=== PATIENT | female | born 1990 | race Caucasian/White ===

== ENCOUNTER 2016-06-22 18:29 | Emergency (ER) | payer OTHER ==
[2016-06-22 18:45] VITALS: BP 99/60; PULSE 63; TEMP 98.2; BMI 16.9
[2016-06-22 19:53] LABS: URINE APPEARANCE CLEAR; URINE BILIRUBIN NEGATIVE (NEGATIVE); URINE BLOOD NEGATIVE (NEGATIVE); URINE COLOR STRAW; URINE GLUCOSE (UA) NEGATIVE (NEGATIVE); URINE KETONE NEGATIVE (NEGATIVE); URINE LEUK ESTERASE NEGATIVE (NEGATIVE); URINE NITRITE NEGATIVE (NEGATIVE); URINE PROTEIN NEGATIVE (NEGATIVE); URINE UROBILINOGEN NEGATIVE E.U./dl (0.2-1.0)
[2016-06-22] MEDS ORDERED: SODIUM CHLORIDE 1,000 ML IV ONE (20:04)
--- NOTE | 2016-06-22 20:07 | PDOC ---
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 The patient denies fever, chills, nausea, vomiting, diarrhea or dysuria. Family is with the patient in the ED. 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 LMP: 06/20/2016. Allergies: None reported. Past Surgical History: None reported. Social History: Non smoker. Denies alcohol or drug use. <Evangelina Pretty - Last Filed: 06/22/16 23:18> <Anitha Roman - Last Filed: 06/22/16 23:47> - General Chief Complaint: Pain Stated Complaint: STOMACH PAIN Time Seen by Provider: 06/22/16 19:25 Past History <Evangelina Pretty - Last Filed: 06/22/16 23:18> - Past Medical History Other medical history: denies - Psycho/Social/Smoking Cessation Hx Suicidal Ideation: No Smoking History: Never smoked Have you smoked in the past 12 months: No Information on smoking cessation initiated: No Hx Alcohol Use: No Drug/Substance Use Hx: No <Anitha Roman - Last Filed: 06/22/16 23:47> - Past Medical History Allergies/Adverse Reactions: Allergies Allergy/AdvReac Type Severity Reaction Status Date / Time No Known Allergies Allergy Verified 06/22/16 18:42 Home Medications: Ambulatory Orders NK [No Known Home Medication] 06/22/16 Review of Systems - Review of Systems Able to Perform ROS?: Yes Comments:: 06/22/16 21:28 CONSTITUTIONAL: Absent: fever, no chills, no fatigue EYES: Absent: visual changes ENT: Absent: ear pain, no sore throat CARDIOVASCULAR: Absent: chest pain, no palpitations RESPIRATORY: Absent: cough, no SOB GI: Present: +RLQ abdominal pain Absent: no nausea, no vomiting, no constipation, no diarrhea GENITOURINARY: Absent: dysuria, no frequency, no hematuria MUSCULOSKELETAL: Absent: back pain, no arthralgia, no myalgia SKIN: Absent: rash NEURO: Absent: headache <Evangelina Pretty - Last Filed: 06/22/16 23:18> *Physical Exam - Vital Signs Last Vital Signs Temp Pulse Resp BP Pulse Ox 98.2 F 63 17 99/60 100 06/22/16 18:42 06/22/16 18:42 06/22/16 18:42 06/22/16 18:42 06/22/16 18:42 - Physical Exam Comments: 06/22/16 21:36 GENERAL: Well-appearing, well-nourished. No apparent distress. HEENT: Normocephalic, atraumatic. PERRL, EOM intact. CARDIOVASCULAR: Regular rate and rhythm. Normal S1, S2. PULMONARY: Lungs clear to auscultation bilaterally. No wheezing, rales or rhonchi. ABDOMEN: RLQ tenderness on palpation with rebound. No guarding. Soft, non- distended. EXTREMITIES: Normal ROM in all four extremities. No gross deformities. SKIN: Warm, dry. No rash. NEUROLOGICAL: No focal neurological deficits. Moving all extremities purposefully. <Evangelina Pretty - Last Filed: 06/22/16 23:18> - Vital Signs Last Vital Signs Temp Pulse Resp BP Pulse Ox 98.2 F 63 17 99/60 100 06/22/16 18:42 06/22/16 18:42 06/22/16 18:42 06/22/16 18:42 06/22/16 18:42 <Anitha Roman - Last Filed: 06/22/16 23:47> ED Treatment Course - LABORATORY CBC & Chemistry Diagram: 06/22/16 20:00 06/22/16 20:00 - ADDITIONAL ORDERS Additional order review: Laboratory Results 06/22/16 06/22/16 20:00 19:50 Sodium 139 Potassium 4.0 Chloride 105 Carbon Dioxide 26 Anion Gap 8 BUN 8 Creatinine 0.6 Creat Clearance w eGFR > 60 Random Glucose 93 Calcium 8.7 Total Bilirubin 0.4 AST 15 ALT 27 Alkaline Phosphatase 63 Total Protein 7.1 Albumin 3.4 Lipase 144 Urine Color Straw Urine Appearance Clear Urine pH 7.0 Ur Specific [place] 1.003 Urine Protein Negative Urine Glucose (UA) Negative Urine Ketones Negative Urine Blood Negative Urine Nitrite Negative Urine Bilirubin Negative Urine Urobilinogen Negative Ur Leukocyte Esterase Negative Urine HCG, Qual Negative 06/22/16 20:00 RBC 4.24 MCV 89.4 MCHC 32.3 RDW 14.3 MPV 9.6 Neutrophils % 53.4 Lymphocytes % 32.9 Monocytes % 9.5 Eosinophils % 2.6 Basophils % 1.6 <Evangelina Pretty - Last Filed: 06/22/16 23:18> - LABORATORY CBC & Chemistry Diagram: 06/22/16 20:00 06/22/16 20:00 - ADDITIONAL ORDERS Additional order review: Laboratory Results 06/22/16 19:50 Urine Color Straw Urine Appearance Clear Urine pH 7.0 Ur Specific [place] 1.003 Urine Protein Negative Urine Glucose (UA) Negative Urine Ketones Negative Urine Blood Negative Urine Nitrite Negative Urine Bilirubin Negative Urine Urobilinogen Negative Ur Leukocyte Esterase Negative Urine HCG, Qual Negative <Anitha Roman - Last Filed: 06/22/16 23:47> Medical Decision Making - Medical Decision Making 06/22/16 21:26 EXAM: TRANSVAGINAL US Reviewed By: Dr. Yuri Zamorano IMPRESSION: Normal uterus. Endometrial stripe thickness normal, 2 mm. Right ovary simple cyst 4.3 x 2.4 x 3.7 cm. Remainder of right ovary unremarkable. Normal right ovarian arterial inflow, venous outflow and Doppler waveform. Negative for right ovarian torsion. No pelvic or adnexal free fluid. Left ovary was not visualized. EXAM: ABDOMEN & PELVIS CT WITH CONTR Reviewed By: Dr. Yuri Zamorano IMPRESSION: Normal appendix. 4.3 cm right ovarian cyst. Moderate colonic stool, correlate for constipation. <Evangelina Pretty - Last Filed: 06/22/16 23:18> - Medical Decision Making 06/22/16 20:07 25-year-old female has been experiencing right lower quadrant pain for 2 days. She denies any nausea, vomiting, diarrhea Her last menstrual period started June 20 She denies any past medical history. She denies any past surgical history. She does not take any prescription medications. Her primary medical doctor is at [address] [place] [address]. 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 There was a right ovarian cyst of 4.3 cm and a moderate amount of colonic stool. Impression: right ovarian cyst, constipation Patient referred to her poured wall foreman -Patient told to use Colace and MiraLAX for her constipation <Anitha Roman - Last Filed: 06/22/16 23:47> *DC/Admit/Observation/Transfer - Attestations Scribe Attestion: 06/22/16 20:53 Documentation prepared by Evangelina Pretty, acting as medical assistant dermatology for Anitha Roman MD. <Evangelina Pretty - Last Filed: 06/22/16 23:18> <Anitha Roman - Last Filed: 06/22/16 23:47> Diagnosis at time of Disposition: Right lower quadrant abdominal pain Ovarian cyst Qualifiers: Laterality: right Qualified Code(s): N83.20 - Unspecified ovarian cysts Constipation Qualifiers: Constipation type: unspecified constipation type Qualified Code(s): K59.00 - Constipation, unspecified - Discharge Dispostion Disposition: HOME Condition at time of disposition: Stable - Patient Instructions Printed Discharge Instructions: DI for Constipation, DI for Ovarian Cyst Additional Instructions: please take MIRALAX for your constipation Follow up with your poured wall foreman for further evaluation of your right ovarian cyst Print Language: ERITREAN
[2016-06-22 20:14] LABS: BASOPHIL 1.6 % (0-2.0); EOSINOPHIL 2.6 % (0-4.5); MCH 28.9 pg (25.7-33.7); MCHC 32.3 g/dl (32.0-36.0); MEAN CELL VOLUME 89.4 fl (80-96); MEAN PLT VOLUME 9.6 fl (7.5-11.1); NEUTROPHILS 53.4 % (42.8-82.8); PLATELET COUNT 252 K/MM3 (134-434); RDW 14.3 % (11.6-15.6); WHITE BLOOD COUNT 4.7 K/mm3 (4.0-10.0)
[2016-06-22 20:32] LABS: ALBUMIN 3.4 g/dl (3.4-5.0); ALK PHOS 63 U/L (45-117); ANION GAP 8 (8-16); BILIRUBIN,TOTAL 0.4 mg/dL (0.2-1.0); CALCIUM 8.7 mg/dL (8.5-10.1); CO2 26 mmol/L (21-32); CREATININE 0.6 mg/dL (0.55-1.02); GLUCOSE,RANDOM 93 mg/dL (74-106); SGOT/AST 15 U/L (15-37); SGPT/ALT 27 U/L (12-78); TOT PROT 7.1 g/dl (6.4-8.2)
[2016-06-22 20:59] LABS: PLATELET ESTIMATE ADEQUATE (NORMAL)
[2016-06-23] MEDS ORDERED: OXYCODONE/APAP 5/325MG COMBO TABLET PO ONE (00:10)
[2016-06-23] MEDS ORDERED: IBUPROFEN 400 MG TABLET (FP) PO ONE ×2 (00:10→00:20)
[2016-06-23] MEDS ORDERED: OXYCODONE/APAP 5/325MG COMBO TABLET ONE (00:20)
== END 2016-06-23 00:22 | disposition home or self-care (01) ==
LOC: JER 18:29
PROC: 3E0337Z Introduction of Electrolytic and Water Balance Substance into Peripheral Vein, Percutaneous Approach (ICD-10-PCS; principal; 2016-06-22)
DX: K59.00 Constipation, unspecified (principal); N83.291 Other ovarian cyst, right side
CPT/HCPCS: 36415; 74177-TC; 76830-TC; 80053; 81003; 83690; 84703; 85025; 99282-25

== ENCOUNTER 2022-09-03 06:59 | Emergency (ER) | payer OTHER ==
[2022-09-03 07:09] VITALS: BP 100/64; PULSE 61; RESP 18; TEMP 97.8; BMI 17.2
[2022-09-03] MEDS ORDERED: SODIUM CHLORIDE 1,000 ML IV STA (07:39)
[2022-09-03] MEDS ORDERED: ONDANSETRON 4 MG/2 ML VIAL IVPUSH ONE (07:45)
[2022-09-03] MEDS ORDERED: MAG HYDROX/AL HYDROX/SIMETH 30 ML UNIT-DOSE CUP PO ONE (07:45)
[2022-09-03] MEDS ORDERED: FAMOTIDINE 20 MG/50 ML IVPB 20 MG/50 ML MG IVPB ONE ×2 (07:45→07:55)
[2022-09-03] MEDS ORDERED: ONDANSETRON 4 MG/2 ML VIAL ONE (07:55)
[2022-09-03] MEDS ORDERED: MAG HYDROX/AL HYDROX/SIMETH 30 ML UNIT-DOSE CUP ONE ×2 (07:55→07:59)
[2022-09-03 08:47] LABS: BASO % 0.3 % (0-2.0); EOS % 1.2 % (0-4.5); HEMATOCRIT 34.9 % (32.4-45.2); LYMPH % 5.7 % (8-40); MCH 30.5 pg (25.7-33.7); MCHC 34.4 g/dl (32.0-36.0); MEAN CELL VOLUME 88.7 fl (80-96); MEAN PLT VOLUME 9.5 fl (7.5-11.1); MONO % 5.3 % (3.8-10.2); NEUT % 87.5 % (42.8-82.8); PLATELET COUNT 192 10^3/uL (134-434); RBC 3.93 M/mm3 (3.60-5.2); RDW 13.2 % (11.6-15.6)
[2022-09-03 09:18] LABS: ALBUMIN 3.6 g/dl (3.4-5.0); CALCIUM 8.7 mg/dL (8.5-10.1)
[2022-09-03 09:19] LABS: BLOOD UREA NITROGEN 19.8 mg/dL (7-18)
[2022-09-03 09:22] LABS: CREATININE 0.6 mg/dL (0.55-1.3)
[2022-09-03 09:23] LABS: BILIRUBIN,TOTAL 0.8 mg/dL (0.2-1); TOT PROT 7.2 g/dl (6.4-8.2)
[2022-09-03 11:20] LABS: EPI CELLS 31 /uL (0-25.1); HCG,QUALITATIVE URINE Negative; HYALINE CASTS 0 /uL (0-3.1); URINE APPEARANCE CLEAR; URINE BACTERIA 340 /uL (0-1359); URINE BILIRUBIN NEGATIVE (NEGATIVE); URINE COLOR YELLOW; URINE GLUCOSE (UA) NEGATIVE (NEGATIVE); URINE KETONE NEGATIVE (NEGATIVE); URINE LEUK ESTERASE TRACE (NEGATIVE); URINE NITRITE NEGATIVE (NEGATIVE); URINE PROTEIN NEGATIVE (NEGATIVE); URINE RBC 14 /uL (0-23.9); URINE UROBILINOGEN 0.2 mg/dL (0.2-1.0); URINE WBC 13 /uL (0-25.8)
== END 2022-09-03 10:45 | disposition home or self-care (01) ==
LOC: JER 06:59
PROC: 3E033GC Introduction of Other Therapeutic Substance into Peripheral Vein, Percutaneous Approach (ICD-10-PCS; principal; 2022-09-03)
PROC: 3E033GC Introduction of Other Therapeutic Substance into Peripheral Vein, Percutaneous Approach (ICD-10-PCS; 2022-09-03)
DX: K29.00 Acute gastritis without bleeding (principal)
CPT/HCPCS: 36415; 76705-TC; 80053; 81003; 83690; 84703; 85025; 87077; 87086; 99284-25

== ENCOUNTER 2024-02-21 21:12 | Emergency (ER) | payer OTHER ==
[2024-02-21 21:22] VITALS: BP 110/75; PULSE 82; RESP 18; TEMP 98; BMI 18.8
[2024-02-21] MEDS ORDERED: ACETAMINOPHEN 500 MG TABLET (FP) ONE (21:59)
[2024-02-21] MEDS ORDERED: ONDANSETRON 4 MG/2 ML VIAL ONE (22:00)
[2024-02-21 22:14] LABS: HCG,QUALITATIVE URINE Positive
[2024-02-21] MEDS: ACETAMINOPHEN 325 MG TABLET (FP) PO ONE (22:14)
[2024-02-21] MEDS: ONDANSETRON 4 MG/2 ML VIAL IVPB ONE (22:15)
[2024-02-21 22:30] LABS: HEMATOCRIT 39.8 % (32.4-45.2); HEMOGLOBIN 12.9 G/dL (10.7-15.3); MCH 29.5 pg (25.7-33.7); MCHC 32.5 g/dl (32.0-36.0); MEAN CELL VOLUME 90.7 fl (80-96); PLATELET COUNT 184.1 10^3/uL (134-434); RBC 4.39 10^6/uL (3.60-5.2); RDW 14.8 % (11.6-15.6); WHITE BLOOD COUNT 6.2 10^3/uL (4.0-10.8)
[2024-02-21 22:44] LABS: ALK PHOS 36 U/L (45-117); ANION GAP 10 mmol/L (4-13); BILIRUBIN,TOTAL 0.6 mg/dl (0.2-1); CALCIUM 9.7 mg/dl (8.5-10.1); CHLORIDE 102 mmol/L (98-107); CO2 20 mmol/L (21-32); CREATININE 0.6 mg/dl (0.6-1.3); GLUCOSE,RANDOM 86 mg/dl (74-106); POTASSIUM 3.6 mmol/L (3.5-5.1); SGOT/AST 12 U/L (15-37); SGPT/ALT 11 U/L (7-52); SODIUM 132 mmol/L (136-145); TOT PROT 6.9 g/dl (6.4-8.2)
[2024-02-21 23:36] LABS: PLATELET ESTIMATE ADEQUATE
[2024-02-22] MEDS ORDERED: ACETAMINOPHEN INJECTION 100 ML ONE (00:01)
[2024-02-22] MEDS: ACETAMINOPHEN 1000 MG/100 ML BAG IVPB ONE (00:07)
== END 2024-02-22 03:12 | disposition home or self-care (01) ==
LOC: FER 21:12
PROC: 3E033NZ Introduction of Analgesics, Hypnotics, Sedatives into Peripheral Vein, Percutaneous Approach (ICD-10-PCS; principal; 2024-02-21)
PROC: 3E033GC Introduction of Other Therapeutic Substance into Peripheral Vein, Percutaneous Approach (ICD-10-PCS; 2024-02-21)
DX: O26.891 Other specified pregnancy related conditions, first trimester (principal); R10.30 Lower abdominal pain, unspecified; O99.891 Other specified diseases and conditions complicating pregnancy; R11.0 Nausea; O46.91 Antepartum hemorrhage, unspecified, first trimester; Z3A.09 9 weeks gestation of pregnancy
CPT/HCPCS: 36415; 76817-TC; 80053; 81003; 81015; 84702; 84703; 85027; 86850; 86900; 86901; 99284-25; J0131

== ENCOUNTER 2024-02-24 10:59 | Emergency (ER) | payer OTHER ==
[2024-02-24 11:05] VITALS: BP 111/54; PULSE 66; RESP 18; TEMP 97.5; BMI 18.8
[2024-02-24] MEDS ORDERED: ACETAMINOPHEN 500 MG TABLET (FP) ONE (12:52)
[2024-02-24] MEDS: ACETAMINOPHEN 500 MG TABLET (FP) PO ONE (13:08)
== END 2024-02-24 17:04 | disposition home or self-care (01) ==
LOC: JER 10:59
DX: O20.0 Threatened abortion (principal)
CPT/HCPCS: 36415; 76815; 84702; 99284-25

== ENCOUNTER 2024-09-11 21:50 | Inpatient (IN) | payer OTHER ==
[2024-09-11] MEDS: LACTATED RINGERS SOLUTION 1,000 ML IV ONE (23:15)
[2024-09-11 23:53] LABS: ABSOLUTE IMMATURE GRANULOCYTES 0.02 x10^3/uL (0.0-0.031); BASOPHILS # 0.03 x10^3/uL (0.01-0.08); EOSINOPHIL % 1.4 % (0.7-5.8); EOSINOPHILS # 0.08 x10^3/uL (0.04-0.36); HEMATOCRIT 32.3 % (34.1-44.9); HEMOGLOBIN 10.5 g/dL (11.2-15.7); MCHC 32.5 g/dl (32.2-35.5); MEAN CELL VOLUME 87.1 fl (79.4-94.8); MEAN PLT VOLUME 13.4 fl (9.4-12.3); MONOCYTE # 0.48 x10^3/uL (0.24-0.86); MONOCYTE % 8.7 % (4.7-12.5); PLATELET COUNT 192 x10^3/uL (182-369); RDW 16.2 % (12.1-16.8)
[2024-09-11 23:59] LABS: INR 0.93 (0.83-1.09); PROTHROMBIN TIME (PATIENT) 10.2 SEC (9.7-13.0)
[2024-09-12 00:07] LABS: POTASSIUM 3.8 mmol/L (3.5-5.1)
[2024-09-12 00:09] LABS: BLOOD UREA NITROGEN 11.5 mg/dL (7-18)
[2024-09-12 00:12] LABS: CREATININE 0.6 mg/dL (0.55-1.3)
[2024-09-12] MEDS: LACTATED RINGERS SOLUTION 1,000 ML/1,000 ML INFUS.BAG IV SCH (00:25)
[2024-09-12] MEDS ORDERED: PENICILLIN G POTASSIUM 5,000,000 (5Mm) UNIT VIAL IVPB SCH (00:45)
[2024-09-12 00:53] VITALS: BMI 21.9
[2024-09-12 00:55] LABS: EPI CELLS 26 /uL (0-25.1); HYALINE CASTS 1 /uL (0-3.1); PH,URINE 7.5 (5.0-8.0); URINE APPEARANCE CLEAR; URINE BACTERIA 253 /uL (0-1359); URINE BILIRUBIN NEGATIVE (NEGATIVE); URINE COLOR YELLOW; URINE GLUCOSE (UA) NEGATIVE (NEGATIVE); URINE KETONE NEGATIVE (NEGATIVE); URINE LEUK ESTERASE 2+ (NEGATIVE); URINE NITRITE NEGATIVE (NEGATIVE); URINE PROTEIN NEGATIVE (NEGATIVE); URINE RBC 197 /uL (0-23.9); URINE UROBILINOGEN 0.2 mg/dL (0.2-1.0); URINE WBC 142 /uL (0-25.8)
[2024-09-12 01:02] LABS: COCAINE, UR NEGATIVE (NEGATIVE); METHADONE, UR NEGATIVE (NEGATIVE); OPIATES, URI NEGATIVE (NEGATIVE); PHENCYCLIDINE,URINE NEGATIVE (NEGATIVE); URINE BENZODIAZEPINES NEGATIVE (NEGATIVE)
[2024-09-12 01:03] LABS: URINE AMPHETAMINES NEGATIVE (NEGATIVE); URINE BARBITURATES NEGATIVE (NEGATIVE)
[2024-09-12 01:06] LABS: HIV INTERPRETATION NEGATIVE (NEGATIVE)
[2024-09-12] MEDS ORDERED: PENICILLIN G POTASSIUM 5,000,000 UNIT/250 ML BAG IVPB ONE (01:18)
[2024-09-12] MEDS ORDERED: PENICILLIN G POTASSIUM 5,000,000 PRE-DOCK IN NS 250 ML IVPB ONE (01:25)
[2024-09-12] MEDS: PENICILLIN G POTASSIUM 5,000,000 (5Mm) UNIT VIAL IVPB ONE (01:25)
[2024-09-12] MEDS: PENICILLIN G POTASSIUM 2,500,000 UNIT in SODIUM CHLORIDE 100 ML IVPB SCH (05:45)
[2024-09-12] MEDS ORDERED: BUTORPHANOL TARTRATE 2 MG/ML VIAL ONE (06:08)
[2024-09-12] MEDS ORDERED: PROMETHAZINE HCL 25 MG/1 ML VIAL ONE (06:08)
[2024-09-12] MEDS: BUTORPHANOL TARTRATE 2 MG/ML VIAL IVPB PRN (06:14)
[2024-09-12] MEDS: PROMETHAZINE HCL 25 MG/1 ML VIAL IVPB PRN (06:14)
[2024-09-12] MEDS ORDERED: NALOXONE HCL 0.4 MG/ML VIAL IVPUSH PRN (08:46)
[2024-09-12] MEDS ORDERED: FENTANYL/BUPIVACAINE/NS/PF - PCEA - 50 ML DISP.SYRIN EP ONE ×2 (08:55→12:31)
[2024-09-12] MEDS: FENTANYL/BUPIVACAINE/NS/PF - PCEA - 50 ML DISP.SYRIN EP SCH (09:18)
[2024-09-12] MEDS ORDERED: OXYTOCIN 20 UNITS in 0.9% NS 20 UNIT/1,000 ML INFUS.BAG IV ONE (11:45)
[2024-09-12] MEDS ORDERED: LIDOCAINE HCL 1% PRESERVATIVE FREE - 30ML VIAL ONE (11:45)
[2024-09-12] MEDS ORDERED: FENTANYL CITRATE/PF 50 MCG/ML VIAL ONE (12:45)
[2024-09-12] MEDS ORDERED: BUPIVACAINE HCL/PF 0.25% (2.5MG/ML) 10 ML VIAL ONE (12:45)
[2024-09-12] MEDS ORDERED: OXYTOCIN 30 UNITS in 0.9% NS 30 UNIT/500 ML INFUS.BAG IVPB ONE (14:19)
[2024-09-12] MEDS: OXYTOCIN 20 UNITS in 0.9% NS 20 UNIT/1,000 ML INFUS.BAG IV SCH (14:32)
[2024-09-12 15:17] LABS: CORD BASE EXCESS -7.8 mmol/L (0-2); CORD HCO3 20.5 mmHg (20-29); CORD PCO2 52.3 mmHg (30-78); CORD pH 7.212 (7.14-7.44)
[2024-09-12 15:17] LABS: CORD BASE EXCESS -5.5 mmol/L (0-2); CORD HCO3 19.6 mmHg (20-29); CORD PCO2 36.9 mmHg (30-78); CORD pH 7.342 (7.14-7.44)
[2024-09-12] MEDS ORDERED: METHYLERGONOVINE MALEATE 0.2 MG/1 ML AMP IM PRN (15:53)
[2024-09-12] MEDS ORDERED: BENZOCAINE 20% 57 GM BOTTLE TP PRN (15:53)
[2024-09-12] MEDS ORDERED: BISACODYL 10 MG SUPP.RECT RC PRN (15:53)
[2024-09-12] MEDS ORDERED: WITCH HAZEL 50% (TUCKS) 40 PAD/JAR PAD TP PRN (15:53)
[2024-09-12] MEDS ORDERED: ACETAMINOPHEN 325 MG TABLET (FP) PO PRN (15:53)
[2024-09-12] MEDS ORDERED: BENZOCAINE 28 GM HEMORRHOIDAL OINTMENT TP PRN (15:53)
[2024-09-12] MEDS ORDERED: oxyCODONE HCL 5 MG TABLET PO PRN (15:53)
[2024-09-12] MEDS: IBUPROFEN 600 MG TABLET (FP) PO PRN (20:38)
[2024-09-13 07:42] LABS: ABSOLUTE IMMATURE GRANULOCYTES 0.04 x10^3/uL (0.0-0.031); BASOPHILS # 0.03 x10^3/uL (0.01-0.08); EOSINOPHIL % 0.8 % (0.7-5.8); EOSINOPHILS # 0.08 x10^3/uL (0.04-0.36); HEMATOCRIT 27.5 % (34.1-44.9); HEMOGLOBIN 8.9 g/dL (11.2-15.7); MCHC 32.4 g/dl (32.2-35.5); MEAN PLT VOLUME 12.6 fl (9.4-12.3); MONOCYTE # 0.52 x10^3/uL (0.24-0.86); MONOCYTE % 5.3 % (4.7-12.5); PLATELET COUNT 165 x10^3/uL (182-369); RDW 16.2 % (12.1-16.8)
[2024-09-13 12:38] VITALS: TEMP 97.9
[2024-09-14 08:29] VITALS: BP 104/66; PULSE 57; RESP 16
[2024-09-14] MEDS: SENNOSIDES/DOCUSATE COMBO (SENNA PLUS) TABLET (UD) PO PRN (08:58)
== END 2024-09-14 14:10 | disposition home or self-care (01) | DRG 560 ==
LOC: JDEL 21:50 → JLDR 09-12 00:15 → J3W 09-12 16:54
PROVIDERS: ADMIT Obstetrics & Gynecology; ATTEND Obstetrics & Gynecology
PROC: 0W8NXZZ Division of Female Perineum, External Approach (ICD-10-PCS; principal; 2024-09-12)
PROC: 10E0XZZ Delivery of Products of Conception, External Approach (ICD-10-PCS; 2024-09-12)
DX: O69.81X0 Labor and delivery complicated by cord around neck, without compression, not applicable or unspecified (principal); Z3A.39 39 weeks gestation of pregnancy; Z37.0 Single live birth
CPT/HCPCS: 36415; 36600; 59409; 76819-TC; 80048; 80307; 81003; 82803; 85025; 85610; 85730; 86780; 86850; 86900; 86901; 87077; 87086; 87389; 88307-TC